=== PATIENT | male | born 1980 | race Two or more races ===

== ENCOUNTER 2021-04-02 23:49 | Emergency (ER) | payer OTHER ==
[~2021-04-02] VITALS: Ht 190.5 cm; Wt 95.3 kg
[2021-04-03] MEDS ORDERED: KETO10TA2 PO (02:26)
[2021-04-03] MEDS ORDERED: ORPHENADRINE C100 MG PO (02:26)
== END 2021-04-03 02:44 | disposition home or self-care (01) ==
LOC: ER 23:49
DX: R22.1 Localized swelling, mass and lump, neck (principal); M62.838 Other muscle spasm; Z98.890 Other specified postprocedural states